=== PATIENT | female | born 1950 | race Caucasian/White ===

== ENCOUNTER → 2016-10-12 | Outpatient (CLI) | payer OTHER, MEDICARE ==
[2014-04-07 09:35] VITALS: BP 152/74
[~2016-10-12] MED LIST: ALBU18HF IH; ATOR20TA58 PO; BENZ200C39 PO; BUDE10.2 IH; CALC667C6 PO; CHOL500016 PO; DICL75TA PO; GABA-586 PO; GLIP5TAB10 PO; LEVO75TA PO; LORA10TA3 PO; METF500T4 PO; MONT10TA6 PO; MOXI3DRO2 LEFTEYE; NEPA1.7D LEFTEYE; PRED5DRO6 LEFTEYE; SERT50TA PO; TIOT18CA IH; TRAM50TA PO
[2016-10-12 11:19] LABS: ALBUMIN 3.5 g/dL (3.4-5.0); ALBUMIN/GLOBULIN RATIO 0.8 (1.0-1.7); CALCIUM 8.8 mg/dL (8.5-10.1); CREATININE 0.9 mg/dL (0.6-1.0); GFR 62.5; TOTAL BILIRUBIN 0.7 mg/dL (0.2-1.0); TOTAL PROTEIN 7.7 g/dL (6.4-8.2)
[2016-10-12 22:28] LABS: HEMOGLOBIN A1C 6.3 % (4.8-5.6)
== END | disposition home or self-care (01) ==
LOC: LAB 10:29
PROVIDERS: ATTEND Family Medicine
DX: E11.59 Type 2 diabetes mellitus with other circulatory complications (principal); E78.00 Pure hypercholesterolemia, unspecified
CPT/HCPCS: 36415; 80053; 80061; 83036

== ENCOUNTER → 2016-10-20 | Outpatient (CLI) | payer OTHER, MEDICARE ==
[2014-04-07 09:35] VITALS: BP 152/74
[2016-10-23 21:07] LABS: ALBUM 3.4 g/dL (2.9-4.4); ALPHA 1 0.2 g/dL (0.0-0.4); GAMMA 1.3 g/dL (0.4-1.8); PROTEIN TOTAL 6.9 g/dL (6.0-8.5)
[2016-10-24 14:10] LABS: ALBUMIN RAND UR 15.6 % (.); ALPHA 1 RAND UR 13.3 % (.); ALPHA 2 RAND UR 17.5 % (.); BETA RAND UR 11.6 % (.); PROTEIN UR RAND 7.7 mg/dL (Not Estab.)
== END | disposition home or self-care (01) ==
LOC: LAB 15:58
PROVIDERS: ATTEND Family Medicine
DX: R78.89 Finding of other specified substances, not normally found in blood (principal)
CPT/HCPCS: 36415; 84165; 84166

== ENCOUNTER → 2017-02-21 | Outpatient (CLI) | payer OTHER, MEDICARE ==
[2014-04-07 09:35] VITALS: BP 152/74
[~2017-02-21] MED LIST changes: -BENZ200C39 PO; +BENZ200C47 PO; +PRED5DRO16 LEFTEYE; -PRED5DRO6 LEFTEYE
== END | disposition home or self-care (01) ==
LOC: LAB 08:31
PROVIDERS: ATTEND Physician Assistant
DX: E11.59 Type 2 diabetes mellitus with other circulatory complications (principal); E03.8 Other specified hypothyroidism
CPT/HCPCS: 84443

== ENCOUNTER → 2017-08-22 | Outpatient (CLI) | payer OTHER, MEDICARE ==
[2014-04-07 09:35] VITALS: BP 152/74
== END | disposition home or self-care (01) ==
LOC: LAB 08:18
PROVIDERS: ATTEND Physician Assistant
DX: E11.59 Type 2 diabetes mellitus with other circulatory complications (principal); E03.8 Other specified hypothyroidism
CPT/HCPCS: 36415; 83036; 84443

== ENCOUNTER 2018-02-17 03:42 | Emergency (ER) | payer OTHER, MEDICARE ==
[2018-02-17 03:42] VITALS: BP 156/88
[~2018-02-17 03:42] MED LIST changes: -METF500T4 PO; +METF500T5 PO
--- NOTE | 2018-02-17 04:12 | PHYS DOC ---
Adult General Chief Complaint Chief Complaint: LACERATION/AVULSION HPI HPI 67-year-old female presents with laceration of the left thumb. 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 She went to potato picker a pill cutter and accidentally scraped her thumb across the razor blade. This lacerated her finger. The laceration is 2.5 cm in length. It is a linear cut. It began to bleed immediately. She applied direct pressure and this controlled the bleeding. She denies any other injury or complaint. Her last tetanus shot was 4 years ago. She takes an aspirin daily. Review of Systems Review of Systems Constitutional: Denies fever or chills [] Eyes: Denies change in visual acuity, redness, or eye pain [] HENT: Denies nasal congestion or sore throat [] Respiratory: Denies cough or shortness of breath [] Cardiovascular: No additional information not addressed in HPI [] GI: Denies abdominal pain, nausea, vomiting, bloody stools or diarrhea [] : Denies dysuria or hematuria [] Musculoskeletal: Denies back pain or joint pain [] Integument: Laceration of the left thumb[] Neurologic: Denies headache, focal weakness or sensory changes [] Endocrine: Denies polyuria or polydipsia [] All other systems were reviewed and found to be within normal limits, except as documented in this note. Allergies Allergies Allergies Coded Allergies Type Severity Reaction Last Updated Verified codeine Allergy Intermediate 04/07/14 Yes diflunisal Allergy Intermediate 04/07/14 Yes doxycycline Allergy Intermediate 04/07/14 Yes Physical Exam Physical Exam Constitutional: Well developed, well nourished, no acute distress, non-toxic appearance. [] HENT: Normocephalic, atraumatic, bilateral external ears normal, oropharynx moist, no oral exudates, nose normal. [] Eyes: PERRLA, EOMI, conjunctiva normal, no discharge. [] Neck: Normal range of motion, no tenderness, supple, no stridor. [] Cardiovascular:Heart rate regular rhythm, no murmur [] Lungs & Thorax: Bilateral breath sounds clear to auscultation [] Abdomen: Bowel sounds normal, soft, no tenderness, no masses, no pulsatile masses. [] Skin: He 0.5 cm linear laceration of the left thumb volar side.[] Back: No tenderness, no CVA tenderness. [] Extremities: No tenderness, no cyanosis, no clubbing, ROM intact, no edema. [] Neurologic: Alert and oriented X 3, normal motor function, normal sensory function, no focal deficits noted. [] Psychologic: Affect normal, judgement normal, mood normal. [] EKG EKG [] Radiology/Procedures Radiology/Procedures [] Course & Med Decision Making Course & Med Decision Making Pertinent Labs and Imaging studies reviewed. (See chart for details) The patient's bleeding was controlled with direct pressure. The skin was well approximated repair was made with skin glue. See note below for more details. Her tetanus is up-to-date. She does not need pain medication as her pain is 1 out of 10. Laceration repair: 2.5 cm linear laceration of the volar side of the thumb. The wound was extensively irrigated with normal saline. There was no suspected infiltration of foreign material. Anesthesia was not used. Since the skin was well approximated and the bleeding was controlled, so she was made to use skin glue. 3 layers of skin glue was applied to the linear laceration without complication. Hemostasis was maintained. A clean dressing was applied. [] Dragon Disclaimer Dragon Disclaimer This electronic medical record was generated, in whole or in part, using a voice recognition dictation system. Departure Departure: Referrals: GHASSAN STEPHEN MD (PCP) CHRISTY EISENBERG DO Feb 17, 2018 04:12
== END 2018-02-17 04:10 | disposition home or self-care (01) ==
LOC: ER 03:42
DX: S61.012A Laceration without foreign body of left thumb without damage to nail, initial encounter (principal); Z88.5 Allergy status to narcotic agent; Z88.8 Allergy status to other drugs, medicaments and biological substances; Z88.1 Allergy status to other antibiotic agents; W27.8XXA Contact with other nonpowered hand tool, initial encounter; Y93.89 Activity, other specified; Y99.8 Other external cause status; Y92.89 Other specified places as the place of occurrence of the external cause
CPT/HCPCS: 12001; 99283

== ENCOUNTER → 2018-03-18 | Outpatient (CLI) | payer OTHER, MEDICARE ==
[2018-02-17 03:42] VITALS: BP 156/88
[2018-03-18 11:21] LABS: ALBUMIN 3.1 g/dL (3.4-5.0); ALBUMIN/GLOBULIN RATIO 0.8 (1.0-1.7); CALCIUM 9.5 mg/dL (8.5-10.1); CREATININE 0.9 mg/dL (0.6-1.0); GFR 62.3; POTASSIUM 4.2 mmol/L (3.5-5.1); TOTAL BILIRUBIN 0.4 mg/dL (0.2-1.0); TOTAL PROTEIN 7.2 g/dL (6.4-8.2)
[2018-03-19 03:09] LABS: HEMOGLOBIN A1C 6.5 % (4.8-5.6)
== END | disposition home or self-care (01) ==
LOC: LAB 10:25
PROVIDERS: ATTEND Physician Assistant
DX: E11.59 Type 2 diabetes mellitus with other circulatory complications (principal); E03.9 Hypothyroidism, unspecified; E78.5 Hyperlipidemia, unspecified; E78.00 Pure hypercholesterolemia, unspecified; Z88.1 Allergy status to other antibiotic agents; Z88.8 Allergy status to other drugs, medicaments and biological substances; Z88.5 Allergy status to narcotic agent; Z90.710 Acquired absence of both cervix and uterus
CPT/HCPCS: 36415; 80053; 80061; 82043; 83036

== ENCOUNTER → 2018-05-10 | Outpatient (CLI) | payer OTHER, MEDICARE ==
[2018-04-05 10:58] VITALS: BP 145/54
[~2018-05-10] MED LIST changes: +METF500T16 PO; -METF500T5 PO; +ONDA4TAB10 SL; +TAMS0.4C97 PO; +TRAM-48 PO
--- NOTE | 2018-05-10 15:37 | RAD ---
KUB, 05/10/2018: HISTORY: Abdominal pain, lithotripsy The abdominal gas pattern is unremarkable. There is no evidence of organomegaly. No renal calcifications are seen. Lower pelvic calcifications are probably phleboliths. The UVJ calculus seen on the CT study of 04/05/2018 is not visible radiographically. It may have passed. Clinical correlation suggested. There are surgical clips in the right upper quadrant. Scattered degenerative changes are present in the spine. IMPRESSION: No acute abdominal abnormality is detected. Electronically signed by: Miguel Recinos MD (05/10/2018 3:34 PM) [facility]
== END | disposition home or self-care (01) ==
LOC: DXRAD 10:20
PROVIDERS: ATTEND Specialist
DX: N20.1 Calculus of ureter (principal); M47.896 Other spondylosis, lumbar region
CPT/HCPCS: 74018

== ENCOUNTER → 2018-11-01 | Outpatient (CLI) | payer OTHER, MEDICARE ==
[2018-04-05 10:58] VITALS: BP 145/54
[~2018-11-01] MED LIST changes: -ALBU18HF IH; +ALBU2.5V8 IH; +MOXI3DRO18 LEFTEYE; -MOXI3DRO2 LEFTEYE
[2018-11-01 12:42] LABS: ALBUMIN 3.1 g/dL (3.4-5.0); ALBUMIN/GLOBULIN RATIO 0.8 (1.0-1.7); CALCIUM 8.9 mg/dL (8.5-10.1); CREATININE 0.8 mg/dL (0.6-1.0); GFR 71.1; POTASSIUM 4.8 mmol/L (3.5-5.1); TOTAL BILIRUBIN 0.5 mg/dL (0.2-1.0); TOTAL PROTEIN 6.9 g/dL (6.4-8.2)
[2018-11-02 03:06] LABS: HEMOGLOBIN A1C 8.3 % (4.8-5.6)
[2018-11-02 10:24] LABS: THYROID STIM HORMONE (TSH) 1.682 uIU/mL (0.358-3.740)
== END | disposition home or self-care (01) ==
LOC: LAB 11:45
PROVIDERS: ATTEND Family Medicine
DX: E11.59 Type 2 diabetes mellitus with other circulatory complications (principal); E03.8 Other specified hypothyroidism
CPT/HCPCS: 36415; 80053; 80061; 82043; 83036; 84443

== ENCOUNTER 2019-10-20 04:01 | Emergency (ER) | payer MEDICARE, OTHER ==
[~2019-10-20] VITALS: Ht 154.9 cm; Wt 82.3 kg
[2019-10-20 04:01] VITALS: BP 118/79
[~2019-10-20 04:01] MED LIST changes: -MONT10TA6 PO; +MONT10TA80 PO
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
[2019-10-20] MEDS ORDERED: ACETAMINOPHEN 500 MG TABLET PO ONE (04:30)
[2019-10-20] MEDS ORDERED: CYCL-331 PO (04:46)
[2019-10-20] MEDS ORDERED: HYDR-1179 PO (04:46)
[2019-10-20 04:55] LABS: BILIRUBIN,URINE NEG (NEG); CLARITY,URINE CLEAR; COLOR,URINE YELLOW; GLUCOSE,URINE >=1000 mg/dL (NEG); NITRITE,URINE NEG (NEG); RBC,URINE OCC /HPF (0-2); UROBILINOGEN,URINE 0.2 mg/dL (0.2 mg/dL); WBC,URINE OCC /HPF (0-4)
[2019-10-20 04:56] LABS: BACTERIA,URINE 0 /HPF (0-FEW); SQUAMOUS EPITHELIAL CELL,UR FEW /LPF
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
[2019-10-20] MEDS ORDERED: KETOROLAC 30 MG/ML VIAL. IM ONE (06:00)
== END 2019-10-20 06:44 | disposition home or self-care (01) ==
LOC: ER 04:01
DX: S40.022A Contusion of left upper arm, initial encounter (principal); S20.222A Contusion of left back wall of thorax, initial encounter; S00.03XA Contusion of scalp, initial encounter; M19.90 Unspecified osteoarthritis, unspecified site; J44.9 Chronic obstructive pulmonary disease, unspecified; E78.00 Pure hypercholesterolemia, unspecified; Z87.442 Personal history of urinary calculi; Z88.1 Allergy status to other antibiotic agents; Z88.5 Allergy status to narcotic agent; Z88.8 Allergy status to other drugs, medicaments and biological substances; Y08.89XA Assault by other specified means, initial encounter; Y93.89 Activity, other specified; Y92.89 Other specified places as the place of occurrence of the external cause; Y99.0 Civilian activity done for income or pay
CPT/HCPCS: 71250; 72128; 72131; 73060; 74176; 81001; 96372; 99285; J1885

== ENCOUNTER 2019-11-23 18:09 | Inpatient (IN) | payer MEDICARE, OTHER ==
[~2019-11-23] VITALS: Ht 157.5 cm; Wt 92.3 kg
[~2019-11-23 18:09] MED LIST changes: +CYCL-331 PO; +HYDR-1179 PO
[2019-11-23] MEDS ORDERED: ONDANSETRON PF 4 MG/2 ML VIAL. ONE (18:20)
[2019-11-23] MEDS ORDERED: ACETAMINOPHEN 500 MG TABLET PO ONE (18:30)
[2019-11-23] MEDS ORDERED: ONDANSETRON PF 4 MG/2 ML VIAL. IVP ONE (18:30)
[2019-11-23] MEDS ORDERED: 0.9 % SODIUM CHLORIDE 10 ML DISP.SYRIN. IV PRN (18:30)
[2019-11-23] MEDS ORDERED: IBUPROFEN 600 MG TABLET. PO ONE (18:30)
[2019-11-23] MEDS ORDERED: IV NORMAL SALINE 1,000ML 1,000 ML IV ONE (18:30)
[2019-11-23 18:47] LABS: BASO % 0 % (0-3); EOS # 0.1 x10^3/uL (0.0-0.7); EOS % 2 % (0-3); HEMATOCRIT 43.2 % (36.0-47.0); HEMOGLOBIN 14.1 g/dL (12.0-15.5); LYMPH # 0.7 x10^3/uL (1.0-4.8); LYMPH % 13 % (24-48); MEAN CORPUSCULAR HEMOGLOBIN 31 pg (25-35); MEAN CORPUSCULAR HGB CONC 33 g/dL (31-37); MEAN CORPUSCULAR VOLUME 94 fL (79-100); MONO # 0.1 x10^3/uL (0.0-1.1); MONO % 2 % (0-9); NEUT # 4.2 x10^3uL (1.8-7.7); NEUT % 83 % (31-73); PLATELET COUNT 237 x10^3/uL (140-400); RED BLOOD COUNT 4.61 x10^6/uL (3.50-5.40); RED CELL DISTRIBUTION WIDTH 14.4 % (11.5-14.5); WHITE BLOOD COUNT 5.1 x10^3/uL (4.0-11.0)
[2019-11-23 18:53] LABS: CREATININE 0.9 mg/dL (0.6-1.0); GFR 61.9; POTASSIUM 3.9 mmol/L (3.5-5.1)
[2019-11-23 18:59] LABS: ALBUMIN 3.4 g/dL (3.4-5.0); ALBUMIN/GLOBULIN RATIO 0.9 (1.0-1.7); TOTAL BILIRUBIN 0.8 mg/dL (0.2-1.0); TOTAL PROTEIN 7.2 g/dL (6.4-8.2)
[2019-11-23 19:03] LABS: CLARITY,URINE CLOUDY; COLOR,URINE ORANGE
[2019-11-23 19:04] LABS: BACTERIA,URINE MOD /HPF (0-FEW); SQUAMOUS EPITHELIAL CELL,UR FEW /LPF; WBC,URINE >40 /HPF (0-4)
[2019-11-23] MEDS ORDERED: IV NORMAL SALINE 50ML 50 ML ONE (19:28)
[2019-11-23] MEDS ORDERED: cefTRIAXone SODIUM 1 GM VIAL ONE (19:29)
[2019-11-23] MEDS ORDERED: ONDANSETRON PF 4 MG/2 ML VIAL. IVP PRN (19:30)
--- NOTE | 2019-11-23 19:31 | PHYS DOC ---
Past History Past Medical History: Arthritis, Asthma, COPD, Depression, Diabetes, High Cholesterol, Kidney Stones, UTI, Other Past Surgical History: Cholecystectomy, , Hysterectomy, Tonsillectomy, Other Additional Past Surgical Histo: wisdom, breast red, septoplasty Alcohol Use: None Drug Use: None General Adult EDM: Chief Complaint: FEVER HPI: HPI: Patient is a 69-year-old female who presents to ER today for evaluation of fever chills. Patient is an RN, works in the ER here. She woke last night, she started not feeling well last night, had chill with frequent urination and painful urination. Patient went home this morning took some Azo and try to sleep up but did not feel better, she continued to have fever and chill, took 800 mg ibuprofen prior to arrival, took 500 mg of Tylenol at noon today. P idris says she always have a dry cough. She has history of asthma, Has secondhand smoking. Patient also has history of diabetes and hypertension. Patient denies any abdominal pain, no chest pain, no trouble breathing. Patient took care of of a patient who tested positive for COVID-19 last month. Patient herself was tested twice for COVID-19 and all came back negative the last one was 1 week ago. Review of Systems: Review of Systems: Constitutional: Positive for fever or chills Eyes: Denies change in visual acuity HENT: Denies nasal congestion or sore throat Respiratory: Denies cough or shortness of breath Cardiovascular: Denies chest pain or edema GI: Denies abdominal pain, nausea, vomiting, bloody stools or diarrhea : positive for urinary frequency and dysuria Musculoskeletal: Denies back pain or joint pain Integument: Denies rash Neurologic: Denies headache, focal weakness or sensory changes Endocrine: Denies polyuria or polydipsia Lymphatic: Denies swollen glands Psychiatric: Denies depression or anxiety Heart Score: Risk Factors: Risk Factors: DM, Current or recent (<one month) smoker, HTN, HLP, family history of CAD, obesity. Risk Scores: Score 0 - 3: 2.5% MACE over next 6 weeks - Discharge Home Score 4 - 6: 20.3% MACE over next 6 weeks - Admit for Clinical Observation Score 7 - 10: 72.7% MACE over next 6 weeks - Early Invasive Strategies Current Medications: Current Meds: Current Medications Medications (Trade) Dose Ordered Sig/Juan Manuel Start Time Stop Time Status Last Admin Dose Admin Acetaminophen (Tylenol) 1,000 mg 1X ONCE 11/23/19 18:30 11/23/19 18:31 DC 11/23/19 18:32 1,000 MG Ceftriaxone Sodium 1 gm/ Sodium Chloride 50 ml @ 100 mls/hr 1X ONCE 11/23/19 19:15 11/23/19 19:44 Ceftriaxone Sodium (Rocephin) 1 gm STK-MED ONCE 11/23/19 19:29 11/23/19 19:29 DC Ibuprofen (Motrin) 600 mg 1X ONCE 11/23/19 18:30 11/23/19 18:31 DC Ondansetron HCl (Zofran) 4 mg 1X ONCE 11/23/19 18:30 11/23/19 18:31 DC 11/23/19 18:29 4 MG Sodium Chloride 50 ml @ As Directed STK-MED ONCE 11/23/19 19:28 11/23/19 19:29 DC Sodium Chloride (Normal Saline Flush) 10 ml QSHIFT PRN 11/23/19 18:30 Allergies: Allergies: Allergies Coded Allergies Type Severity Reaction Last Updated Verified codeine Allergy Intermediate 04/07/14 Yes diflunisal Allergy Intermediate 04/07/14 Yes doxycycline Allergy Intermediate 04/07/14 Yes Physical Exam: PE: Constitutional: Well developed, well nourished, no acute distress, non-toxic appearance. [] HENT: Normocephalic, atraumatic, bilateral external ears normal, oropharynx moist, no oral exudates, nose normal. [] Eyes: PERRLA, EOMI, conjunctiva normal, no discharge. [] Neck: Normal range of motion, no tenderness, supple, no stridor. [] Cardiovascular: sinus tachycardia,regular rhythm, no murmur [] Lungs & Thorax: Bilateral breath sounds clear to auscultation [] Abdomen: Bowel sounds normal, soft, no tenderness, no masses, no pulsatile masses. [] Skin: Warm, dry, no erythema, no rash. [] Back: No tenderness, no CVA tenderness. [] Extremities: No tenderness, no cyanosis, no clubbing, ROM intact, no edema. [] Neurologic: Alert and oriented X 3, normal motor function, normal sensory function, no focal deficits noted. [] Psychologic: Affect normal, judgement normal, mood normal. [] Current Patient Data: Labs: Laboratory Tests Test 11/23/19 18:20 11/23/19 18:25 Urine Collection Type Unknown Urine Color [place] Urine Clarity Cloudy Urine pH Urine Specific [place] Urine Protein (NEG-TRACE) Urine Glucose (UA) mg/dL (NEG) Urine Ketones (Stick) mg/dL (NEG) Urine Blood (NEG) Urine Nitrite (NEG) Urine Bilirubin (NEG) Urine Urobilinogen Dipstick mg/dL (0.2 mg/dL) Urine Leukocyte Esterase (NEG) Urine RBC 3-5 /HPF (0-2) Urine WBC >40 /HPF (0-4) Urine Squamous Epithelial Cells Few /LPF Urine Bacteria Mod /HPF (0-FEW) White Blood Count 5.1 x10^3/uL (4.0-11.0) Red Blood Count 4.61 x10^6/uL (3.50-5.40) Hemoglobin 14.1 g/dL (12.0-15.5) Hematocrit 43.2 % (36.0-47.0) Mean Corpuscular Volume 94 fL (79-100) Mean Corpuscular Hemoglobin 31 pg (25-35) Mean Corpuscular Hemoglobin Concent 33 g/dL (31-37) Red Cell Distribution Width 14.4 % (11.5-14.5) Platelet Count 237 x10^3/uL (140-400) Neutrophils (%) (Auto) 83 % (31-73) H Lymphocytes (%) (Auto) 13 % (24-48) L Monocytes (%) (Auto) 2 % (0-9) Eosinophils (%) (Auto) 2 % (0-3) Basophils (%) (Auto) 0 % (0-3) Neutrophils # (Auto) 4.2 x10^3uL (1.8-7.7) Lymphocytes # (Auto) 0.7 x10^3/uL (1.0-4.8) L Monocytes # (Auto) 0.1 x10^3/uL (0.0-1.1) Eosinophils # (Auto) 0.1 x10^3/uL (0.0-0.7) Basophils # (Auto) 0.0 x10^3/uL (0.0-0.2) Sodium Level 141 mmol/L (136-145) Potassium Level 3.9 mmol/L (3.5-5.1) Chloride Level 103 mmol/L (98-107) Carbon Dioxide Level 28 mmol/L (21-32) Anion Gap 10 (6-14) Blood Urea Nitrogen 13 mg/dL (7-20) Creatinine 0.9 mg/dL (0.6-1.0) Estimated GFR (Cockcroft-Gault) 61.9 BUN/Creatinine Ratio 14 (6-20) Glucose Level 177 mg/dL (70-99) H Lactic Acid Level 2.1 mmol/L (0.4-2.0) H Calcium Level 9.0 mg/dL (8.5-10.1) Total Bilirubin 0.8 mg/dL (0.2-1.0) Aspartate Amino Transferase (AST) 21 U/L (15-37) Alanine Aminotransferase (ALT) 32 U/L (14-59) Alkaline Phosphatase 94 U/L (46-116) Troponin I Quantitative < 0.017 ng/mL (0-0.055) Total Protein 7.2 g/dL (6.4-8.2) Albumin 3.4 g/dL (3.4-5.0) Albumin/Globulin Ratio 0.9 (1.0-1.7) L Lipase 84 U/L (73-393) Vital Signs: Vital Signs Date Time Temp Pulse Resp B/P (MAP) Pulse Ox O2 Delivery O2 Flow Rate FiO2 11/23/19 19:00 120 20 128/58 (81) 95 Nasal Cannula 3.0 11/23/19 18:09 101.3 EKG: EKG: EKG WAS DONE AT 1830, RATE OF 1256 BPM, SINUS TACHYCARDIA[] Radiology/Procedures: Radiology/Procedures: [][address] [address] IMAGING REPORT Signed PATIENT: JOVANI SPRINGER ACCOUNT: [id number] : 1950 LOCATION: [address] [place] [address] AGE: 69 SEX: F EXAM STATUS: ADM IN ORD. PHYSICIAN: HAYDE NOGUERA DO REASON: fever, COUGH, CHILLS. PROCEDURE: PORTABLE CHEST 1V PORTABLE CHEST 1V Clinical History: Technique: AP view of the chest was obtained at 11/23/2019 6:21 PM. Comparison: February 22, 2011. Findings: The cardiomediastinal silhouette is normal. The pulmonary vasculature is normal. The lungs and pleural margins are clear. Impression: No evidence of an acute cardiopulmonary process. Electronically signed by: Mg Moya III, MD (11/23/2019 8:16 PM) [id number] DICTATED AND SIGNED BY: MG MOYA III, MD DATE: 11/23/192015 CC: GHASSAN STEPHEN MD; PAULINO BLAIR MD; HAYDE NOGUERA DO ~ Course & Med Decision Making: Course & Med Decision Making Pertinent Labs and Imaging studies reviewed. (See chart for details) []COVID-19 CRITERIA: The patient was evaluated during the global COVID-19 pandemic, and that diagnosis was suspected/considered upon their initial presentation. Their evaluation, treatment and testing was consistent with current guidelines for patients who present with complaints or symptoms that may be related to COVID-19. Patient is a 69-year-old female with fever, frequent urination. Has signs and symptoms of urosepsis. Patient was given 1 L normal saline IV bolus and 1 g of Tylenol p.o. in the ER, she was also given 1 g of Rocephin IV. 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 We will treat her as suspect COVID-19 INFECTION. Dragon Disclaimer: William Disclaimer: This electronic medical record was generated, in whole or in part, using a voice recognition dictation system. Departure Departure: Impression: Primary Impression: Sepsis Additional Impressions: UTI (urinary tract infection) Fever Suspected 2019 novel coronavirus infection Disposition: ADMITTED INPATIENT Admitting Physician: Paulino Blair Condition: IMPROVED Referrals: GHASSAN STEPHEN MD (PCP) COVID-19 Assessment COVID-19 Patient Risks: Age 65 or older: Yes Sign of co-morbidity: Yes Exp to person + for COVID: Yes Exp to PUI: Yes Travel from affected area: No Lower respiratory symptoms: Yes Fever: Yes Other: No PPE Use: Full PPE with N95 mask or PAPR: Yes HAYDE NOGUERA DO Nov 23, 2019 19:31
--- NOTE | 2019-11-23 20:19 | RAD ---
PORTABLE CHEST 1V Clinical History: Technique: AP view of the chest was obtained at 11/23/2019 6:21 PM. Comparison: February 22, 2011. Findings: The cardiomediastinal silhouette is normal. The pulmonary vasculature is normal. The lungs and pleural margins are clear. Impression: No evidence of an acute cardiopulmonary process. Electronically signed by: Henry Melendez III, MD (11/23/2019 8:16 PM) [id number]
[2019-11-23 20:59] VITALS: BP 126/65
[2019-11-23] MEDS ORDERED: GABA-586 PO (22:34)
[2019-11-23] MEDS ORDERED: BUPR150T8 PO (22:34)
[2019-11-23] MEDS ORDERED: LEVO88TA4 PO (22:34)
[2019-11-23] MEDS ORDERED: EMPA10TA PO (22:34)
[2019-11-23] MEDS ORDERED: FLUT9.9S NS (22:34)
[2019-11-23] MEDS ORDERED: GLYB5TAB3 PO (22:34)
[2019-11-23] MEDS ORDERED: DULA0.75 SQ (22:34)
[2019-11-23] MEDS ORDERED: GABA300C8 PO (22:34)
[2019-11-23] MEDS: IV NORMAL SALINE 1,000ML 1,000 ML IV SCH (22:43)
--- NOTE | 2019-11-23 23:39 | NUR ---
The patient, JOVANI SPRINGER, 69 y/o, F admitted by XOCHILT YEE MD, was given written information regarding hospital policies, unit procedures and contact persons. Valuables were checked and noted. PT presented with N/V, fever, chills with frequency and burning on urination. PT presented for increased symptoms. Reviewed with PT her PMH, PSH, SH, FH and medications.
[2019-11-24] VITALS (8 sets, daily range): BP systolic 103–173; BP diastolic 50–81
[2019-11-24] MEDS: ACETAMINOPHEN 325 MG TABLET PO PRN ×4 (01:48→21:54)
[2019-11-24] MEDS ORDERED: IPRATRPIUM/ALBUTEROL 0.5/2.5MG 3 ML NEBU. ONE (02:41)
--- NOTE | 2019-11-24 03:49 | NUR ---
PT stated she felt feverish, temperature checked, PT at 99.5. PT requested Tylenol. Tylenol administered. A few minutes later, PT requested a warm blanket and more ice water. Shortly afterward, PT reported chills. Temperature rechecked and noted to be 100.3. At this time, PT had been on RA per her request to ambulate to the bathroom. PT desaturated to 80% with slight confusion noted (i.e. 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 O2 reapplied and titrated up to 6L. Heart rate increased and sustained in 150-160 range. PT shaking at bedside. BP increased to 173/81. PT with N/V during this time as well. RT paged. PT given Zofran with improved symptoms. RT administered inhaler, then a DuoNeb treatment and finally inhaler with spacer with instruction on proper use of spacer. PT continued to be monitored in room for next hour, slowly improving. PT at 96% on 6L O2 and heart rate now in 120s on room exit.
[2019-11-24] MEDS ORDERED: IPRATRPIUM/ALBUTEROL 0.5/2.5MG 3 ML NEBU. NEB ONE (04:15)
[2019-11-24] MEDS ORDERED: DEXTROSE 50% 25 GM / 50ML DISP.SYRIN. IV PRN (07:30)
[2019-11-24] MEDS ORDERED: ALBUTEROL SULFATE 2.5 MG/3 ML NEBU. IH PRN (07:30)
[2019-11-24] MEDS ORDERED: ONDANSETRON ODT 4 MG TAB.RAPDIS PO PRN (07:30)
--- NOTE | 2019-11-24 07:37 | EKG ---
[address] [address] Test Date: 2019-11-23 Test Time: 18:30:17 Pat Name: JOVANI SPRINGER Department: Room: 103 A Gender: F Orthopaedic Technologist: : 1950 Requested By: HAYDE NOGUERA Order Number: [id number] Reading MD: Artur Mayes MD Measurements Intervals [place] Rate: 126 P: [place]: QRS: 1 QRSD: 80 T: 63 QT: 308 QTc: 446 Interpretive Statements SINUS TACHYCARDIA Electronically Signed On 11-24-2019 13:25:56 CDT by Artur Mayes MD
[2019-11-24] MEDS: buPROPion SR 150 MG TABLET.SA PO SCH ×2 (07:55→21:48)
[2019-11-24] MEDS: LEVOTHYROXINE 88 MCG TABLET PO SCH (07:55)
[2019-11-24] MEDS: GABAPENTIN 300 MG CAPSULE. PO SCH ×2 (07:55→21:48)
[2019-11-24] MEDS: glyBURIDE 5 MG TABLET PO SCH ×2 (07:55→21:48)
[2019-11-24] MEDS: SERTRALINE 50 MG TABLET. PO SCH ×2 (08:17→21:47)
--- NOTE | 2019-11-24 08:28 | NUR ---
NSG NOTE; PT AWAKE ALERT AND CALM THIS AM; TEMP 97.9 AND STATES FEELING MUCH BETTER WITHOUT FEVER. BREATHING CALM AND REGULAR, NO COUGH OR SOA. NO N/V WITH GOOD APPETITE; EATING BREAKFAST. STATES FEELS CHILLS AND SOA WITH FEVER SO REQUESTED AND GIVEN TYLENOL THIS AM TO PREVENT ELEV TEMP
[2019-11-24] MEDS ORDERED: FLUTICASONE 50MCG/NASAL SPRAY 16GM BOTTLE. NS PRN (09:00)
[2019-11-24] MEDS: IV NORMAL SALINE 1,000ML 1,000 ML IV SCH ×2 (10:30→15:00)
[2019-11-24] MEDS: LACTOBACILLUS RHAMNOSUS GG 1 CAPSULE. PO SCH ×2 (14:00→21:48)
[2019-11-24] MEDS ORDERED: SIMV40TA18 PO (14:24)
--- NOTE | 2019-11-24 14:29 | NUR ---
NSG NOTE; DESAT ON RA PT WAS ASLEEP WITH THE O2 NC OFF HER FACE. HER O2 SAT AT THIS TIME WAS 86%. O2 NC AT 4L REAPPLIED. O2 SAT RECOVERED QUICKLY TO 96 % AND STAYED AT 96% WITH O2 AT 2L.
[2019-11-24] MEDS ORDERED: IOHEXOL 350 MG/ML 100 ML VIAL. IV ONE (14:45)
[2019-11-24] MEDS ORDERED: CONTRAST GIVEN MC PRN (15:15)
--- NOTE | 2019-11-24 15:20 | HP ---
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 She went home and took some Azo and tried to sleep, but did not feel better. She continued to have fever and chills, took 800 mg ibuprofen prior to arrival and took another 500 mg Tylenol. The patient states she always has a dry cough. She has a history of bronchial asthma. She has a secondhand smoking because her father, her and her daughter were all smokers. She apparently started having cough about a month ago. She was tested for coronavirus COVID-19, it was positive. She stayed about 2 weeks at home and she was tested again, the last test was done about a week ago and she decided to come back and to work on the weekends. She was extensively investigated and her white cell count was normal at 5100. Her chemistry was unremarkable except the fact that she has hyperglycemia; however, her PT, INR and aPTT are normal; however, D-dimer was slightly high at 1.27. Urinalysis showed the urine was cloudy with more than 40 wbc's and moderate amount of bacteria. Her chest x-ray showed that the cardiomediastinal silhouette is normal. The pulmonary vasculature is normal. The lungs and pleural margins are clear and therefore, the patient was admitted with urinary tract infection, sepsis with lactic acidosis as well as suspected 2019 novel coronavirus infection. She was admitted and kept on droplet precaution, was started on IV antibiotic in the form of ceftriaxone 1 g IV daily. We continued all her other medications. PAST MEDICAL HISTORY: Significant for chronic obstructive pulmonary disease, hyperlipidemia, nephrolithiasis. She underwent right sided lithotripsy about a year ago. She is known to have hypothyroidism as well as generalized osteoarthritis. PAST SURGICAL HISTORY: Significant for tonsillectomy and adenoidectomy. She has wisdom tooth extraction. She has ingrown toenails, , tubal ligation, total abdominal hysterectomy, bilateral salpingo-oophorectomy, cholecystectomy. She has fibrocystic disease of both breasts, which she underwent surgery and underwent breast reduction surgery. She underwent liposuction. She has benign lipoma removed from the back of her neck. She had sinus surgery and dacryocyst surgery. She has bilateral cataract extraction, bilateral rotator cuff repair, and right sided carpal tunnel release. ALLERGIES: SHE IS ALLERGIC TO CODEINE, DIFLUNISAL, DOXYCYCLINE. MEDICATIONS: She is currently on following medications: She is currently on tiotropium bromide for Spiriva HandiHaler 1 inhalation once a day, albuterol sulfate for ProAir 2 puffs every 4-6 hours, simvastatin 40 mg at bedtime, diclofenac sodium 75 mg p.o. b.i.d., gabapentin 300 mg daily, gabapentin 600 mg at bedtime. She is on Wellbutrin SR 150 mg twice a day, sertraline 25 mg twice a day. She is on Symbicort 1 puff twice a day, Flonase 2 sprays to each nostril once a day. She is on Zofran ODT 4 mg tablet sublingually every 8 hours as needed, metformin 500 mg twice a day, dulaglutide for Trulicity 0.75 mg subcutaneously weekly. She is on Jardiance 10 mg at bedtime, glyburide 5 mg, she takes 2 tablets twice a day and levothyroxine sodium 88 mcg once a day. FAMILY HISTORY: She has 1 sister and 2 brothers, all younger. Both of her brothers have coronary artery bypass graft surgery and one brother has both hip replaced. Her mother at the age of 89 because of hypothyroidism and multiple cerebrovascular accidents. Father at the age of 54 because of alcoholic liver cirrhosis and cerebral hemorrhage due to thrombocytopenia. SOCIAL HISTORY: She is , has 2 stepchildren, 2 biological children. She is raising her 15-year-old grandson. She is a secondhand smoker because her father and and daughter all were smoker. She does not drink alcohol or use any recreational drugs. 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 REVIEW OF SYSTEMS: She has bilateral cataract extraction, but denied any glaucoma or macular degeneration. Denied any earache, tinnitus or sensorineural deafness. Denied any nosebleeds, stuffy nose or postnasal drip. Denied any sore throat, sore tongue, toothache, hoarseness of voice or difficulty swallowing. She denied any nausea, vomiting, diarrhea or constipation. Did complain of dysuria and frequency, but denied any hematuria. Denied any chest pain, did complain of shortness of breath, cough, which is mostly dry. Denied any orthopnea, paroxysmal nocturnal dyspnea, although she said that she sleeps in a recliner. She does snore but she has never been diagnosed with obstructive sleep apnea. She has obviously chills, but denied any dizziness or lightheadedness. PHYSICAL EXAMINATION: GENERAL: On arrival to the Emergency Room, she was obviously slightly tachypneic, but there was no pallor, jaundice, cyanosis or thyromegaly. No jugular venous distention. No lower limb edema. VITAL SIGNS: Her heart rate was 105, blood pressure was 126/65, temperature was 99.5. Subsequently, risen to 102.7. Her respiratory rate was 22 and oxygen saturation was 95% on 3 liters of oxygen. HEAD, EYES, EARS, NOSE AND THROAT: Showed normocephalic, atraumatic. NECK: Supple. HEART: Showed normal first and second heart sounds. No gallop, rub or murmur. CHEST: Showed central trachea. There is bilateral good air entry and vesicular breath sounds. No crepitation or rhonchi. ABDOMEN: Distended, soft, nontender. NEUROLOGIC: She is alert, oriented x 3 with normal motor and sensory function. LABORATORY DATA: While in the Emergency Room, she has had lab work done, which showed a white cell count 5100, hemoglobin 14, hematocrit 43, MCV 94, platelet count 237,000 with a manual differential showed 83% polymorphs, 13% lymphocytes and 2% monocytes. Her serum sodium was 141, potassium 3.9, chloride 103, bicarbonate 28, anion gap of 10, BUN 13, creatinine 0.9, estimated GFR was 62 mL per minute. Her glucose 177, calcium was 9. Total bilirubin, AST, ALT, alkaline phosphatase were normal. Her lactic acid was 2.1. Her total protein was 7.2, albumin 3.4. Her prothrombin time and INR and aPTT were normal. Her fibrinogen was normal at 655. However, D-dimer was elevated at 1.27. Urinalysis showed the urine was cloudy. There are 3-4 rbc's, more than 40 wbc's, and moderate amount of bacteria. Therefore, the patient was admitted with fever, sepsis, urinary tract infection. Given elevated D-dimer and mild leukopenia, hypoxia and cough, I will arrange for her to have a CT scan of the chest. XOCHILT YEE MD DR: KORIN/fernanda JOB#: [id number] / [id number]
--- NOTE | 2019-11-24 16:16 | RAD ---
CTA scan of the Chest with Contrast (Pulmonary Embolism protocol) 11/24/2019 Clinical History: Elevated d-dimer. Fever. Hypoxia. Technique: After the intravenous administration of 90 cc of Omnipaque 350, contiguous, 0.625 mm axial sections were obtained through the chest. 3 and 1 mm axial and 3D MIP coronal and sagittal reconstructed images were obtained. One or more of the following individualized dose reduction techniques were utilized for this study: 1. Automated exposure control. 2. Adjustment of the mA and/or kV according to patient size. 3. Use of iterative reconstruction technique. Findings: Comparison is made to patient's CT scan of the chest dated 10/20/2019. No filling defect is seen within the major branches of either pulmonary artery. There is no CT evidence of pulmonary embolism. The heart is mildly enlarged. Atherosclerotic calcification thoracic aorta and its branches is seen. The thoracic aorta is mildly tortuous but tapers normally. Minimal dependent subsegmental atelectasis is seen involving both lungs. No area of consolidation, pleural effusion or pneumothorax is seen. Impression: There is no CT evidence of pulmonary embolism. Electronically signed by: Ari Pettit MD (11/24/2019 4:13 PM) [id number]
[2019-11-24] MEDS: NON FORMULARY ITEM (Empagliflozin (Jardiance) 10 MG) PO SCH (21:00)
[2019-11-24] MEDS: SIMVASTATIN 40 MG TABLET. PO SCH (21:47)
--- NOTE | 2019-11-24 22:46 | PN ---
DATE: 11/24/2019 SUBJECTIVE: The patient is resting, slightly propped up in bed, continued to have recurrent bouts of cough, which is mostly dry. She continued to spike her temperature. In fact, this morning, her temperature went up to 102.7. PHYSICAL EXAMINATION: GENERAL: When I examined her this afternoon, she looked well and was clearly in no apparent respiratory distress. No pallor, jaundice, cyanosis or thyromegaly. No jugular venous distention. No lower limb edema. VITAL SIGNS: Her heart rate was 95, blood pressure was 106/62, temperature was 98.1, respiratory rate was 20 and her oxygen saturation was 96% on 4 liters of oxygen. HEAD, EYES, EARS, NOSE AND THROAT: Showed normocephalic, atraumatic. NECK: Supple. HEART: Showed normal first and second heart sounds. No gallop, rub or murmur. CHEST: Shows central trachea, equal bilateral chest expansion, air entry, vesicular sounds. No crepitation or rhonchi. ABDOMEN: Distended, soft, nontender. NEUROLOGIC: She was awake, alert and was basically grossly intact. Her intake and output are incompletely recorded. She has no lab work done this morning; however, her blood sugar seems well controlled. Her lactic acid is down to 1. In summary, this is a 69-year-old female patient, who was admitted with chills and fever, dysuria and frequency. She was admitted with sepsis and urinary tract infection. She also has cough, hypoxia and elevated D-dimer. She is a high risk for exposure to COVID-19 and therefore, I have arranged for her to have a CT angio of the chest and to rule out also the possibility of the CLARITA. She has a multitude of medical problems including chronic obstructive pulmonary disease; however, she is not on any oxygen at home; hyperlipidemia; hypothyroidism; osteoarthritis and history of nephrolithiasis, requiring lithotripsy. XOCHILT YEE MD DR: KORIN/fernanda JOB#: [id number] / [id number]
[2019-11-25] MEDS: IV NORMAL SALINE 1,000ML 1,000 ML IV SCH ×2 (02:05→17:40)
[2019-11-25 05:35] VITALS: BP 148/84
[2019-11-25 06:25] LABS: HEMATOCRIT 34.1 % (36.0-47.0); HEMOGLOBIN 11.3 g/dL (12.0-15.5); RED BLOOD COUNT 3.62 x10^6/uL (3.50-5.40); RED CELL DISTRIBUTION WIDTH 14.6 % (11.5-14.5); WHITE BLOOD COUNT 4.6 x10^3/uL (4.0-11.0)
[2019-11-25 06:44] LABS: ALBUMIN 2.5 g/dL (3.4-5.0); ALBUMIN/GLOBULIN RATIO 0.6 (1.0-1.7); CALCIUM 8.3 mg/dL (8.5-10.1); CREATININE 0.7 mg/dL (0.6-1.0); GFR 82.7; POTASSIUM 3.7 mmol/L (3.5-5.1); TOTAL BILIRUBIN 0.3 mg/dL (0.2-1.0); TOTAL PROTEIN 6.6 g/dL (6.4-8.2)
[2019-11-25] MEDS ORDERED: ALBUTEROL SULFATE 2.5 MG/3 ML NEBU. IH PRN (08:30)
[2019-11-25] MEDS: GABAPENTIN 300 MG CAPSULE. PO SCH ×2 (08:49→21:16)
[2019-11-25] MEDS: buPROPion SR 150 MG TABLET.SA PO SCH ×2 (08:49→21:15)
[2019-11-25] MEDS: LACTOBACILLUS RHAMNOSUS GG 1 CAPSULE. PO SCH ×2 (08:49→21:16)
[2019-11-25] MEDS: SERTRALINE 50 MG TABLET. PO SCH ×2 (08:49→21:15)
[2019-11-25] MEDS: LEVOTHYROXINE 88 MCG TABLET PO SCH (08:49)
[2019-11-25] MEDS: glyBURIDE 5 MG TABLET PO SCH ×2 (08:49→21:16)
[2019-11-25 10:58] VITALS: BP 111/68
[2019-11-25] MEDS: ACETAMINOPHEN 325 MG TABLET PO PRN (14:02)
[2019-11-25 14:34] VITALS: BP 141/72
--- NOTE | 2019-11-25 15:14 | NUR ---
Patient doing well, appears to be more restful and feeling much better today. While patient was sleeping o2 stats were 93% on 2l while sitting in bed, when patient taken off oxygen o2 will decrease to 88-89%. Dr Blair here to see patient, plan is to DC IV fluids, and complete a 6 minute walk and nocturnal desat study to rule out need for oxygen while sleeping. Physician suggests need for sleep apnea testing upon discharge. Patient states that she continues to have frequency upon urination but the burning sensation is resolved. Patients appetite appears to be better.
--- NOTE | 2019-11-25 16:51 | PN ---
DATE: 11/25/2019 SUBJECTIVE: The patient is resting, slightly propped up in bed, in no apparent respiratory distress. Awake and alert. She has had no more chills. No fever. The cough is much improved; however, the patient was noted to desaturate when she is asleep without oxygen down to 88%; on 2 liters of oxygen, her saturation improved to 95%. The patient has never had any sleep study before. She is a secondhand smoker. She probably has COPD and probably morbid obesity and obstructive sleep apnea. PHYSICAL EXAMINATION: GENERAL: When I examined her this afternoon, she looked well and was clearly in no apparent respiratory distress, slightly pale, but no jaundice, cyanosis or thyromegaly. No jugular venous distention. No lower limb edema. VITAL SIGNS: Her heart rate was 101, blood pressure was 141/72, temperature was 98.2, respiratory rate was 18 and oxygen saturation was 95% on 2 liters of oxygen. HEAD, EYES, EARS, NOSE AND THROAT: Showed normocephalic, atraumatic. NECK: Supple. HEART: Showed normal first and second heart sounds. No gallop, rub or murmur. CHEST: Clear to auscultation. No crepitation or rhonchi. ABDOMEN: Distended, soft, nontender. No guarding or rigidity. No organomegaly. All hernial orifice intact. Bowel sounds normal. NEUROLOGIC: She is awake, alert, responding appropriately. All cranial nerves intact. She moves extremities without difficulty. Her intake was 4015, no output was recorded. LABORATORY DATA: Her lab work this morning showed a white cell count is 4600, hemoglobin 11, hematocrit 34, MCV 94 and platelet count 205,000. Her chemistry showed a serum sodium 141, potassium 3.7, chloride 106, bicarbonate 25, anion gap of 10, BUN 13, creatinine 0.7, estimated GFR was 83 mL per minute. Her glucose 147, calcium was 8.3. Total bilirubin, AST, ALT, alkaline phosphatase were normal. Total protein 6.6, albumin 2.5. Her prothrombin time, INR and aPTT are normal. D-dimer was high at 1.27. Her COVID-19 by PCR was negative. Her blood culture showed growth of gram-negative rods in 4/4 bottles. The identification and sensitivity is still pending at the time of this dictation. ASSESSMENT: 1. This is a 69-year-old female patient, who was admitted with chills and fever, dysuria and frequency. She was diagnosed with sepsis due to urinary tract infection and her blood culture has grown gram-negative rods. The identification and sensitivity is still pending. 2. Cough, hypoxia and elevated D-dimer. She is also high risk for exposure to COVID-19. 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 We did a CT angio of the chest, which basically showed that the patient has no filling defects seen within the major branches in either pulmonary artery. There is no CT evidence of pulmonary embolism. The heart is mildly enlarged, atherosclerotic calcification of thoracic aorta and its branches is seen. The thoracic aorta is mildly tortuous ____ normally. There is minimal dependent subsegmental atelectasis seen involving both lungs. No areas of consolidation, pleural effusion or pneumothorax. Her COVID-19 was negative. Her body mass index is 37. She actually desaturates when she is asleep probably due to obstructive sleep apnea. We did start her on 2 liters of fluid. We will do a 6-minute walk, also overnight pulse oximetry and we will arrange for her to have a sleep study. She apparently has been a secondhand smoker. Her father, , and daughter are all smokers. She has multiple other medical problems including: A. Chronic obstructive pulmonary disease. B. Hyperlipidemia. C. Hypothyroidism. D. Osteoarthritis. 3. History of nephrolithiasis requiring lithotripsy. PLAN: To continue with IV ceftriaxone, continue with all her other medications. I discontinued her IV fluid. Obviously if she is feeling well tomorrow and I leave this to Dr. Rizzo to decide whether she needs to go home or not tomorrow once we have the result of the culture and sensitivity. XOCHILT YEE MD DR: KORIN/fernanda JOB#: [id number] / [id number]
[2019-11-25 19:01] VITALS: BP 125/74
[2019-11-25] MEDS: NON FORMULARY ITEM (Empagliflozin (Jardiance) 10 MG) PO SCH (21:00)
[2019-11-25] MEDS: SIMVASTATIN 40 MG TABLET. PO SCH (21:15)
[2019-11-25 22:56] VITALS: BP 114/87
[2019-11-26 05:44] VITALS: BP 154/92
[2019-11-26] MEDS: glyBURIDE 5 MG TABLET PO SCH (07:48)
[2019-11-26] MEDS: LEVOTHYROXINE 88 MCG TABLET PO SCH (07:48)
[2019-11-26] MEDS: GABAPENTIN 300 MG CAPSULE. PO SCH (07:49)
[2019-11-26] MEDS: SERTRALINE 50 MG TABLET. PO SCH (07:50)
[2019-11-26] MEDS: buPROPion SR 150 MG TABLET.SA PO SCH (07:50)
[2019-11-26] MEDS: LACTOBACILLUS RHAMNOSUS GG 1 CAPSULE. PO SCH (07:51)
--- NOTE | 2019-11-26 11:12 | DS ---
DATE OF DISCHARGE: 11/26/2019 ATTENDING PHYSICIAN: Dr. Blair. FINAL DISCHARGE DIAGNOSES: 1. Dyspnea, improved. 2. Mild exacerbation of chronic obstructive pulmonary disease. 3. Urinary tract infection. 4. Bacteremia without sepsis syndrome. 5. History of type 2 diabetes. 6. Hyperlipidemia. 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 She was ill, fevers, chills, some shortness of breath. She was admitted for further treatment and evaluation on 11/23/2019. PHYSICAL EXAMINATION: Please see the dictated note. PERTINENT LABORATORY AND X-RAY STUDIES: The admission hemoglobin was 14.1 g/dL with a white count of 5100. Chemistry panel was unremarkable with normal BUN and creatinine, electrolytes. Cultures though did grow out, the urine culture was greater than 100,000 colonies of E. coli. Blood culture was also positive. She did have 4/4 bottles positive; however, she was treated early with fluids and antibiotics. She did not have sepsis syndrome. She had bacteremia. COURSE IN THE HOSPITAL: She was admitted. Her oxygen saturations were marginal. At this time, I do not believe she needs supplemental oxygen. She still is wanting to go back to work. She received 3 full days of intravenous Rocephin with marked improvement. By the fourth hospital day, she had no other symptom. Her lungs were clear. She clearly did not look toxic. She was ready for discharge. At this time, I recommended 7 more days of cephalexin. On the day of discharge, her blood pressure was 154/92, pulse is 96 and regular, temperature 97.9 degrees Fahrenheit, and room air saturations were at 94%. It was recommended that she get an outpatient sleep study to rule out sleep apnea. This can be scheduled at a later date. On the day of discharge, she was sent home then with 7 more days of cephalexin 500 mg p.o. t.i.d. In addition, I did not recommend any further supplemental oxygen at this time, she should continue her Spiriva, albuterol, Zocor, p.r.n. Voltaren, Neurontin, BuSpar, Zoloft, budesonide, fluticasone, p.r.n. Zofran, metformin, Trulicity weekly, Jardiance and glyburide, dose is unchanged along with her Synthroid 88 mcg, dose is unchanged. Scripts were written for cephalexin 500 mg p.o. t.i.d. for 7 more days. I gave her a work release through and including 11/30/2019. Return to work on 12/01/2019. Strong encouragement to avoid secondhand smoke if this is feasible. The patient was then discharged from our hospital in a stable condition with explicit instructions on followup care. ESPERANZA BIRD MD DR: KRISSY/fernanda JOB#: [id number] / [id number] XOCHILT Vega MD
--- NOTE | 2019-11-26 11:25 | NUR ---
Nursing discharge note Patient education reviewed for scripts of Tussionex prn and also return to work after November 28, 2019. Patient verbalizes understanding of education for UTI and shortness of air. Patient instructed to return to primary 7-10 days, or earlier if needed. Patient ambulated out with belongings and driven to self car at the ED parking lot per security. Addendum: 11/26/19 at 1149 by PAT CASANOVA RN Aida FRANCO nursing note Wrong patient entry. Patient education reviewed for script Cephafexin and also return to work after November 28, 2019. Patient verbalizes understanding of education for UTI, shortness of air, and second hand smoke. Patient instructed to return to primary 7-10 days or earlier if needed. Patient ambulated out with belongings and return home with family member bellman driver.
== END 2019-11-26 11:00 | disposition home health service (06) | DRG 872 ==
LOC: ER 18:09 → 1 SOUTH 20:18
PROVIDERS: ADMIT Internal Medicine; ATTEND Internal Medicine
DX: A41.50 Gram-negative sepsis, unspecified (principal); N39.0 Urinary tract infection, site not specified; J44.1 Chronic obstructive pulmonary disease with (acute) exacerbation; E78.00 Pure hypercholesterolemia, unspecified; I10 Essential (primary) hypertension; Z77.22 Contact with and (suspected) exposure to environmental tobacco smoke (acute) (chronic); E11.65 Type 2 diabetes mellitus with hyperglycemia; E78.5 Hyperlipidemia, unspecified; E03.9 Hypothyroidism, unspecified; M15.9 Polyosteoarthritis, unspecified; R09.02 Hypoxemia; G47.33 Obstructive sleep apnea (adult) (pediatric); E66.01 Morbid (severe) obesity due to excess calories; Z68.37 Body mass index [BMI] 37.0-37.9, adult; Z98.42 Cataract extraction status, left eye; Z98.41 Cataract extraction status, right eye; Z90.710 Acquired absence of both cervix and uterus; Z87.442 Personal history of urinary calculi; Z90.49 Acquired absence of other specified parts of digestive tract; Z88.5 Allergy status to narcotic agent; Z88.0 Allergy status to penicillin; Z98.51 Tubal ligation status; Z20.828 Contact with and (suspected) exposure to other viral communicable diseases
CPT/HCPCS: 36415; 71045; 71275; 80053; 81001; 82947; 83605; 83690; 84484; 85025; 85027; 85379; 85384; 85610; 85730; 87040; 87077; 87086; 87186; 87205; 87635; 93005; 94618; 94640; 94799; 96361; 96365; 96375; J0696; J2405; Q9967; 99285-25; J7030

== ENCOUNTER → 2020-06-21 | Outpatient (CLI) | payer MEDICARE, OTHER ==
[~2020-06-21] MED LIST changes: +BUPR150T8 PO; +DULA0.75 SQ; +EMPA10TA PO; +FLUT9.9S NS; +GABA300C8 PO; +GLYB5TAB3 PO; +LEVO88TA4 PO; +SIMV40TA18 PO
--- NOTE | 2020-06-21 10:41 | RAD ---
CT scan of the abdomen and pelvis without contrast 06/21/2020 CLINICAL HISTORY: Left flank pain. Hematuria. TECHNIQUE: Unenhanced, contiguous, 3 mm axial sections were obtained through the abdomen and pelvis. One or more of the following individualized dose reduction techniques were utilized for this study: 1. Automated exposure control. 2. Adjustment of the mA and/or kV according to patient size. 3. Use of iterative reconstruction technique. FINDINGS: Comparison study is dated 04/05/2018. Images through the lung bases demonstrate minimal dependent subsegmental atelectasis bilaterally. The liver parenchyma has a decreased attenuation consistent with fatty infiltration. The spleen, pancreas, and right adrenal gland are within normal limits. A 1 cm oval-shaped low-attenuation structure is seen involving the left adrenal gland consistent with an adrenal adenoma. This is unchanged. No focal abnormality of the right kidney is seen. A 6 mm nonobstructing calculus is seen involving the lower pole of the left kidney. No ureteral calculus is seen. There is no evidence of obstruction of either collecting system. Atherosclerotic calcification of the abdominal aorta is seen. The abdominal aorta tapers normally. Surgical clips are seen within the gallbladder fossa consistent with a cholecystectomy. No free fluid or free air is seen within the abdomen. There is no evidence of bowel obstruction. Air and stool are seen throughout the colon. The appendix is well-visualized and is within normal limits. Images through the pelvis demonstrate the urinary bladder distended with urine. Multiple diverticula are seen involving the sigmoid colon. No inflammatory changes are seen within the adjacent fat. Calcifications are seen within the pelvis consistent with phleboliths. No distal ureteral calculus is seen. No free fluid is noted. Very mild S-shaped curvature of the thoracolumbar spine is seen. Degenerative changes involving the lower thoracic and throughout the lumbar spine along with both hips. IMPRESSION: 6 mm nonobstructing left renal calculus. No ureteral calculus is seen. There is no evidence of obstruction of either collecting system. No acute abnormality is seen. Electronically signed by: Ari Pettit MD (06/21/2020 10:38 AM) [id number]
== END ==
LOC: CT 09:42
PROVIDERS: ATTEND Family Medicine
DX: N30.01 Acute cystitis with hematuria (principal); I70.0 Atherosclerosis of aorta; N32.89 Other specified disorders of bladder; N20.0 Calculus of kidney; M47.815 Spondylosis without myelopathy or radiculopathy, thoracolumbar region; M43.8X5 Other specified deforming dorsopathies, thoracolumbar region; I87.8 Other specified disorders of veins; K57.30 Diverticulosis of large intestine without perforation or abscess without bleeding; Z90.49 Acquired absence of other specified parts of digestive tract
CPT/HCPCS: 74176

== ENCOUNTER → 2020-08-21 | Outpatient (CLI) | payer MEDICARE, OTHER | LOC: LAB 14:20 | PROVIDERS: ATTEND Internal Medicine Cardiovascular Disease | DX: R11.2 Nausea with vomiting, unspecified (principal); R19.7 Diarrhea, unspecified; R69 Illness, unspecified; Z20.822 Contact with and (suspected) exposure to COVID-19 | CPT/HCPCS: U0003 ==

== ENCOUNTER 2020-10-04 01:56 | Emergency (ER) | payer MEDICARE, OTHER ==
[~2020-10-04] VITALS: Ht 157.5 cm; Wt 87.3 kg
[2020-10-04 01:56] VITALS: BP 115/95
[2020-10-04] MEDS ORDERED: HYDROcodone/CHLORPHEN POLIS 5 ML SUS.ER.12H PO ONE (02:15)
[2020-10-04] MEDS ORDERED: DEXAMETHASONE 4 MG TABLET PO ONE (02:15)
[2020-10-04] MEDS ORDERED: HYDR5SOL2 PO (02:40)
--- NOTE | 2020-10-04 02:44 | PHYS DOC ---
Past History Past Medical History: Arthritis, Asthma, COPD, Depression, Diabetes, High Cholesterol, Kidney Stones, UTI, Other Past Surgical History: Cholecystectomy, , Hysterectomy, Tonsillectomy, Other Additional Past Surgical Histo: wisdom, breast red, septoplasty Alcohol Use: None Drug Use: None Adult General Chief Complaint Chief Complaint: COUGH HPI HPI Patient is a 70-year-old female with a past medical history significant for asthma who presents with 3 days of productive cough, nasal congestion and body aches. States she has asthma and seasonal allergies at baseline has been taking her asthma medications and [id number] cough medicine. Denies any chest pain, abdominal pain, nausea, vomiting, diarrhea, dysuria, hematuria or blood in the stool. Review of Systems Review of Systems Review of systems otherwise unremarkable except noted in HPI Allergies Allergies Allergies Coded Allergies Type Severity Reaction Last Updated Verified codeine Allergy Intermediate 04/07/14 Yes diflunisal Allergy Intermediate 04/07/14 Yes doxycycline Allergy Intermediate 04/07/14 Yes Physical Exam Physical Exam Constitutional: Well developed, well nourished, no acute distress, non-toxic appearance. [] HENT: Normocephalic, atraumatic, bilateral external ears normal, oropharynx moist, no oral exudates, nose normal. [] Eyes: conjunctiva normal, no discharge. [] Neck: Normal range of motion, no lymphadenopathy Cardiovascular: Sinus tachycardia Lungs & Thorax: Global bilateral mild rhonchi, very mild end expiratory wheeze, little worse on the right Abdomen: soft, no tenderness, no masses, no pulsatile masses. [] Skin: Warm, dry, no erythema, no rash. [] Extremities: No tenderness, no cyanosis, no clubbing, ROM intact, no edema. [] Neurologic: Alert and oriented X 3, normal motor function, normal sensory function, no focal deficits noted. [] Psychologic: Affect normal, judgement normal, mood normal. [] Current Patient Data Vital Signs Vital Signs Date Time Temp Pulse Resp B/P (MAP) Pulse Ox O2 Delivery O2 Flow Rate FiO2 10/04/20 01:56 98.5 112 24 115/95 (102) 93 Room Air EKG EKG [] Radiology/Procedures Radiology/Procedures [] Heart Score C/O Chest Pain: No Risk Factors: Risk Factors: DM, Current or recent (<one month) smoker, HTN, HLP, family history of CAD, obesity. Risk Scores: Risk Factors: DM, Current or recent (<one month) smoker, HTN, HLP, family history of CAD, obesity. Course & Med Decision Making Course & Med Decision Making Patient is a 70-year-old female with a past medical history of asthma presents with 3 days of productive cough, nasal congestion Vital signs notable for sinus tachycardia. Physical exam noted above. Sinus tachycardia most likely secondary to albuterol use at home. Given dose of dexamethasone given wheeze. Given home dose of albuterol. Given hydrocodone cough syrup. Chest x-ray with no obvious consolidations or pneumothorax. Appears to have probable bronchitis. Discussed findings with patient. Gave prescription for hydrocodone solution for cough. Advised to follow-up with primary care physician as soon as she can. Gave strict return precautions to the ED. Patient grateful, verbalized understanding and agreed with plan of discharge. [] Dragon Disclaimer Dragon Disclaimer This electronic medical record was generated, in whole or in part, using a voice recognition dictation system. Departure Departure: Disposition: 01 PR HOME SELF CARE/HOMELESS Condition: GOOD Referrals: GHASSAN STEPHEN MD (PCP) Patient Instructions: Acute Bronchitis, Asthma, Acute Bronchospasm Additional Instructions: Please read all the attached information. Please take all your medications as prescribed. Please use the hydrocodone solution as prescribed and as part of your cough medication regimen. Remember that this solution has 108 mg of acetaminophen. Please do not exceed 3000 mg of acetaminophen daily. Please follow-up with your primary care physician as soon as you can. Please come back to the ED with new or concerning symptoms. Scripts Hydrocodone Bit/Acetaminophen (HYDROCODONE-APAP 2.5-108/5 SOLN) 5 Ml Solution 5 ML PO TID PRN PRN for pleuritic chest pain for 7 Days, #90 ML 0 Refills Prov: RADHA BOWSER MD 10/04/20 RADHA BOWSER MD Oct 04, 2020 02:44
--- NOTE | 2020-10-04 03:11 | RAD ---
XR CHEST 1V INDICATION: Reason: cough / Spl. Instructions: / History: . COMPARISON STUDY: None. FINDINGS: Lungs: Normal lung volume. No pulmonary mass or consolidation. The tracheobronchial tree and hilar st ructures are normal. Pleura: No pleural effusion or pneumothorax. Heart and Mediastinum: The cardiomediastinal silhouette is normal. The great vessels of the thorax ar e normal. Bones and Soft Tissues: The bones and soft tissues are within normal limits. IMPRESSION: No acute cardiopulmonary process. Electronically signed by: Aric Huber MD (10/04/2020 3:08 AM) [facility]
== END 2020-10-04 02:45 | disposition home or self-care (01) ==
LOC: ER 01:56
DX: R05 Cough (principal); R09.81 Nasal congestion; M19.90 Unspecified osteoarthritis, unspecified site; J44.9 Chronic obstructive pulmonary disease, unspecified; F32.9 Major depressive disorder, single episode, unspecified; E78.00 Pure hypercholesterolemia, unspecified; Z87.891 Personal history of nicotine dependence; Z90.710 Acquired absence of both cervix and uterus; Z90.89 Acquired absence of other organs; Z98.890 Other specified postprocedural states
CPT/HCPCS: 71045; 99283; J8540

== ENCOUNTER → 2021-02-08 | Outpatient (CLI) | payer OTHER ==
[~2021-02-08] MED LIST changes: +HYDR5SOL2 PO
== END ==
LOC: LAB 13:34
PROVIDERS: ATTEND Internal Medicine Cardiovascular Disease
DX: R06.02 Shortness of breath (principal); J02.9 Acute pharyngitis, unspecified; R53.81 Other malaise; Z20.822 Contact with and (suspected) exposure to COVID-19
CPT/HCPCS: U0003

== ENCOUNTER → 2021-08-24 | Outpatient (CLI) | payer MEDICARE, OTHER ==
[~2021-08-24] MED LIST changes: -CYCL-331 PO; +CYCL10TA19 PO
--- NOTE | 2021-08-24 14:38 | RAD ---
EXAM: DUAL ENERGY X-RAY ABSORPTIOMETRY (DEXA). HISTORY: Postmenopausal screening. FINDINGS: The lowest measured T-score is -0.8 in the right femoral neck, based on a bone mineral dens ity of 0.844 g/cm^2. Refer to the worksheets for full detail. There has been a 1.2 percent decrease in density of the right hip and 7.3 percent increase in density of the lumbar spine compared to a baseline study performed 01/07/2004. IMPRESSION: 1. Normal. Bone mineral density yields a T-score of -1.0 or greater. Fracture risk is low. 2. FRAX report: Not calculated. METHODOLOGY: Dual energy x-ray absorptiometry was performed to measure bone mineral density. The foll owing analysis is based on the 2019 Official Positions of the International Society for Clinical Dens itometry: Measurements of the hips and the average of L1-L4 are preferred. When the spine and/or hip cannot be feasibly measured or interpreted, or in the setting of hyperparathyroidism, distal radial bone minera l density may be measured. The lumbar spine T-score is based on the average bone mineral density of L1-L4. In the setting of art ifact or anatomic abnormality, some lumbar levels may be excluded, and the remaining levels used for calculation. A single lumbar level is not used for diagnosis, and if only a single level is available for assessment, another anatomic site will be used to assign a diagnosis. The hip T-score is based on the bone mineral density measurement of the femoral neck or total proxima l femur of either side, whichever is lowest. Bilateral mean values are not used for diagnosis. The forearm T-score is derived from 33% of the distal radius of the nondominant forearm. Electronically signed by: Danni Hill MD (08/24/2021 2:36 PM) [id number]
--- NOTE | 2021-08-24 14:40 | RAD ---
BILATERAL DIGITAL SCREENING 2-D AND 3-D MAMMOGRAM INDICATION: Routine screening. COMPARISON: Prior exam of 03/03/2016. Interpretation was made using CAD. FINDINGS: Breast Density: B RIGHT BREAST: Postoperative changes are suggested and appear similar. No new mass or suspicious calci fications are seen. LEFT BREAST: Postoperative changes are suggested and appear stable. No new abnormality is seen. IMPRESSION: 1. No imaging evidence of malignancy. ASSESSMENT: BI-RADS 2. Benign findings. RECOMMENDATION: Routine annual screening mammogram. The facility will notify the patient of the results via mail. Patient information will be entered int o the mammography reminder system with a target recall date for the next mammogram. A reminder letter will be generated by the facility. Electronically signed by: Gatito Easley Jr., MD (08/24/2021 2:37 PM) [id number]
== END ==
LOC: MAMMO 12:52
PROVIDERS: ATTEND Family Medicine
DX: Z12.31 Encounter for screening mammogram for malignant neoplasm of breast (principal); Z00.00 Encounter for general adult medical examination without abnormal findings; N95.1 Menopausal and female climacteric states
CPT/HCPCS: 77063; 77067; 77080